=== PATIENT | female | born 1970 | race Two or more races ===

== ENCOUNTER 2018-09-29 10:10 | Emergency (ER) | payer MEDICAID ==
[~2018-09-29] VITALS: Ht 142.2 cm; Wt 42.6 kg
--- NOTE | 2018-09-29 10:24 | NUR ---
ED Nurse Note: PT WALKED IN TO ER TODAY FROM HOME. AOX4. PT C/O UPPER ABDOMINAL PAIN, 7/10, NAUSEA, AND MULTIPLE EPISODES OF VOMITING AND DIARRHEA X 3 DAYS AGO. ABDOMEN NONDISTENDED AND NONTENDER TO PALPATION. ACTIVE BOWEL SOUNDS IN ALL QUADRANTS.
[2018-09-29 10:30] VITALS: BP 142/78
[2018-09-29] MEDS ORDERED: Dicyclomine HCl 10mg/5ml oral soln ORAL ONE (10:30)
--- NOTE | 2018-09-29 10:33 | Emergency Room Report ---
History of Present Illness General Chief Complaint: Nausea, Vomiting, and Diarrhea Source: Patient Present Illness HPI Patient is a 47-year-old female presented after increased nausea vomiting and diarrhea.Patient had prior history of type 2 diabetes.She has been having increased crampy abdominal pain as well as watery diarrhea for several days.Patient denies any current vomiting but has some continued nausea.She denies any antibiotic use prior to illness. She states that she had not seen any blood in her stools or emesis. She had a prior but had no recent surgeries. She denied recent travel.Patient denies any dizziness or lightheadedness. Allergies: Coded Allergies: No Known Allergies (Unverified , 09/29/18) Patient History Past Medical History: see triage record Last Menstrual Period: 2014 Now: No Reviewed Nursing Documentation: PMH: Agreed; PSxH: Agreed Nursing Documentation-PMH Past Medical History: No History, Except For Hx Diabetes: Yes Review of Systems All Other Systems: negative except mentioned in HPI Physical Exam Vital Signs Date Time Temp Pulse Resp B/P (MAP) Pulse Ox O2 Delivery O2 Flow Rate FiO2 09/29/18 10:15 98.1 91 20 98 Room Air General Appearance: well appearing, no apparent distress, alert, GCS 15, non- toxic Head: normocephalic, atraumatic ENT: hearing grossly normal, normal voice Neck: full range of motion, supple Respiratory: lungs clear, normal breath sounds, no respiratory distress, speaking full sentences Cardiovascular #1: normal inspection, no edema Gastrointestinal: normal inspection, normal bowel sounds, non tender, soft, no mass Musculoskeletal: no calf tenderness Neurologic: normal inspection, alert, oriented x3, responsive, business services tech III-XII nml as tested, normal gait Psychiatric: normal inspection, mood/affect normal Skin: normal inspection, normal color, no rash Medical Decision Making Diagnostic Impression: Primary Impression: Viral gastroenteritis ER Course Patient presented for vomiting and diarrhea. Differential diagnosis include was not limited to viral gastroenteritis, bowel obstruction, dysentery, GI bleeding among others. Patient has a benign exam and does not appear to require any further imaging or laboratory testing at this time. Patient appears to be well-hydrated. She was given oral antiemetic as well as medications for discomfort. Patient did not have any focal tenderness and was ambulatory with a normal gait.Patient does not appear to be dehydrated. She was advised oral rehydration. She is advised not to prepare food for other people. She was given instructions on return precautions. Patient appears to be stable for discharge. Last Vital Signs Date Time Temp Pulse Resp B/P (MAP) Pulse Ox O2 Delivery O2 Flow Rate FiO2 09/29/18 10:15 98.1 91 20 98 Room Air Status: improved Disposition: HOME, SELF-CARE Condition: Stable Scripts Loperamide HCl (Loperamide) 2 Mg Capsule 2 MG ORAL Q4H, #20 CAP 0 Refills Prov: Rosalio Huynh MD 09/29/18 Dicyclomine Hcl* (DICYCLOMINE HCL*) 10 Mg Capsule 10 MG ORAL QID, #20 CAP Prov: Rosalio Huynh MD 09/29/18 Ondansetron (Zofran) 4 Mg Tablet 4 MG ORAL Q6H PRN for Nausea & Vomiting, #15 TAB 0 Refills Prov: Rosalio Huynh MD 09/29/18 Rosalio Huynh MD September 29, 2018 10:33
[2018-09-29] MEDS ORDERED: ZOFRAN4 MG ORAL (10:35)
[2018-09-29] MEDS ORDERED: DICYCLOMINE HCL10 MG ORAL (10:35)
[2018-09-29] MEDS ORDERED: IMODIUM2 MG ORAL (10:35)
[2018-09-29 10:42] LABS: APPEARANCE,URINE CLEAR; BILIRUBIN, URINE NEGATIVE (NEGATIVE); COLOR,URINE PALE YELLOW; GLUCOSE, URINE (UA) NEGATIVE (NEGATIVE); KETONES,URINE NEGATIVE (NEGATIVE); LEUKOCYTE ESTERASE ,URINE 1+ (NEGATIVE); NITRITE,URINE NEGATIVE (NEGATIVE); PH,URINE 5 (4.5-8.0); PROTEIN,URINE NEGATIVE (NEGATIVE); UROBILINOGEN,URINE NORMAL MG/DL (0.0-1.0)
[2018-09-29] MEDS ORDERED: Loperamide 2mg cap ORAL ONE (11:00)
--- NOTE | 2018-09-29 11:30 | NUR ---
ED Nurse Note: PT SITTING PEACEFULLY IN BED IN NAD. AOX4. PRESCRIPTIONS AND DISCHARGE PAPERWORK EXPLAINED TO PT. PT VERBALIZES UNDERSTANDING AND ALL QUESTIONS ANSWERED. PRESCRIPTIONS AND DISCHARGE PAPERWORK GIVEN TO PT AND ID WRISTBAND REMOVED. PT WALKED OUT OF ER WITH STEADY GAIT AND ALL BELONGINGS.
[2018-09-29 11:33] VITALS: BP 138/82
== END 2018-09-29 11:30 | disposition home or self-care (01) ==
LOC: EMR 10:55
DX: K52.9 Noninfective gastroenteritis and colitis, unspecified (principal); E11.9 Type 2 diabetes mellitus without complications
CPT/HCPCS: 81003; 81025; 99283

== ENCOUNTER 2019-01-23 20:00 | Emergency (ER) | payer MEDICAID ==
[~2019-01-23] VITALS: Ht 142.2 cm; Wt 40.8 kg
[~2019-01-23 20:00] MED LIST: DICYCLOMINE HCL10 MG ORAL; IMODIUM2 MG ORAL; ZOFRAN4 MG ORAL
[2019-01-23 20:26] VITALS: BP 129/72
--- NOTE | 2019-01-23 20:31 | Emergency Room Report ---
History of Present Illness General Chief Complaint: Vaginal Source: Patient Present Illness HPI 48 YO Female presents to the ED and reports vaginal itching off and on x 7 months. has been trying OTC creams and washes and she feels the skin is very irritated now. Denies suspicion for STI. Denies N/V/F/C. She reports 7/10 in severity burning pain. Pt. reports initially having some whitish d/c. Pt. Denies recent unprotected intercourse. Pt. reports severe itching with no relief from OTC and natural remedies. Pt. reports her doctor recommended her to use an OTC wash and unknown cream. Denies external lesions or bumps. Denies swollen tender lymph nodes. Denies dysuria unless urine gets on the irritated area. Denies urinary frequency or urgency. Allergies: Coded Allergies: No Known Allergies (Unverified , 09/29/18) Patient History Past Medical History: see triage record Past Surgical History: none Pertinent Family History: none Last Menstrual Period: 2015 Now: No Reviewed Nursing Documentation: PMH: Agreed; PSxH: Agreed Nursing Documentation-PMH Past Medical History: No History, Except For Hx Diabetes: Yes Review of Systems All Other Systems: negative except mentioned in HPI Physical Exam Vital Signs Date Time Temp Pulse Resp B/P (MAP) Pulse Ox O2 Delivery O2 Flow Rate FiO2 01/23/19 20:09 98.1 79 18 129/72 (91) 98 Room Air Sp02 EP Interpretation: reviewed, normal General Appearance: no apparent distress, alert, GCS 15, non-toxic Head: normocephalic, atraumatic Eyes: bilateral eye normal inspection, bilateral eye PERRL ENT: hearing grossly normal, normal voice Neck: full range of motion Respiratory: lungs clear, normal breath sounds, speaking full sentences Cardiovascular #1: regular rate, rhythm Gastrointestinal: normal bowel sounds, non tender, soft, non-distended, no guarding Genitourinary: normal inspection, no CVA tenderness, other - Pt. with very swollen and macerated appearing external labia. some thick white d/c noted. no blisters, vesicles, LAD, no ulcers. excoriations noted. Musculoskeletal: back normal, gait/station normal, normal range of motion, non- tender Neurologic: alert, oriented x3, responsive, motor strength/tone normal, sensory intact, normal gait, speech normal, grossly normal Psychiatric: judgement/insight normal Skin: rash - Pt. with very swollen and macerated appearing external labia. some thick white d/c noted. no blisters, vesicles, LAD, no ulcers. excoriations noted. Lymphatic: no adenopathy Medical Decision Making PA Attestation Dr. Patel is my supervising Physician whom patient management has been discussed with. Diagnostic Impression: Primary Impression: Vaginitis and vulvovaginitis ER Course 48 YO Female presents to the ED and reports vaginal itching off and on x 7 months. has been trying OTC creams and washes and she feels the skin is very irritated now. Denies suspicion for STI. Denies N/V/F/C. She reports 7/10 in severity burning pain. Pt. reports initially having some whitish d/c. Pt. Denies recent unprotected intercourse. Pt. reports severe itching with no relief from OTC and natural remedies. Pt. reports her doctor recommended her to use an OTC wash and unknown cream. Denies external lesions or bumps. Denies swollen tender lymph nodes. Denies dysuria unless urine gets on the irritated area. Denies urinary frequency or urgency. Ddx considered but are not limited to UTi , Pyelo, STI, Stone, Cystitis, vaginal laceration, vaginitis. Vital signs: are WNL, pt. is afebrile H& PE are most consistent with: Vaginitis -- most likely could have been atrophic in etiology however after multitude of products and different feminine washes suspect yeast or abnormal increase in vaginal elizabet. ORDERS: none, dx'd clinically ED INTERVENTIONS: -Diflucan PO DISCHARGE: At this time pt. is stable for d/c to home. Will provide printed patient care instructions, and any necessary prescriptions. Care plan and follow up instructions have been discussed with the patient prior to discharge. discussed with the patient prior to discharge. Last Vital Signs Date Time Temp Pulse Resp B/P (MAP) Pulse Ox O2 Delivery O2 Flow Rate FiO2 01/23/19 20:09 98.1 79 18 129/72 (91) 98 Room Air Disposition: HOME, SELF-CARE Condition: Stable Scripts Clotrimazole (Gyne-Lotrimin) 21 Gm Cream.appl 1 APPLIC VG DAILY, #21 GM Prov: Jaqueline Robbins 01/23/19 Metronidazole* (FLAGYL*) 500 Mg Tablet 500 MG ORAL BID for 7 Days, #14 TAB Prov: Jaqueline Robbins 01/23/19 Fluconazole (FLUCONAZOLE) 100 Mg Tablet 100 MG ORAL DAILY, #4 TAB 0 Refills Prov: Jaqueline Robbins 01/23/19 Patient Instructions: Vaginitis Additional Instructions: Take medications as directed. Follow up with a POLICE CLERK within 3-5 days, even if your symptoms have resolved. Return sooner to ED if new symptoms occur, or current symptoms become worse. - Please note that this Emergency Department Report was dictated using [employer] counselor technology software, occasionally this can lead to erroneous entry secondary to interpretation by the dictation equipment. Jaqueline Robbins Jan 23, 2019 20:31
[2019-01-23] MEDS ORDERED: METRONIDAZOLE500 MG ORAL (20:33)
[2019-01-23] MEDS ORDERED: GYNE-LOTRIMIN21 GM VG (20:33)
[2019-01-23] MEDS ORDERED: FLUCONAZOLE100 MG ORAL (20:33)
--- NOTE | 2019-01-23 20:36 | NUR ---
ED Nurse Note: Pt walked in due to vaginal itching and red discharge x 7 months. VSS.
--- NOTE | 2019-01-23 20:40 | NUR ---
ER DISCHARGE NOTE: Patient is cleared to be discharged per ERMD, pt is aox4, on room air, with stable vital signs. pt was given dc and prescription instructions, pt was able to verbalize understanding, pt id band removed. pt is able to ambulate with steady gait. pt took all belongings.
== END 2019-01-23 20:40 | disposition home or self-care (01) ==
LOC: EMR 20:28
DX: N76.0 Acute vaginitis (principal); E11.9 Type 2 diabetes mellitus without complications
CPT/HCPCS: 99282

== ENCOUNTER 2019-04-05 21:37 | Emergency (ER) | payer MEDICAID ==
[~2019-04-05] VITALS: Ht 142.2 cm; Wt 40.8 kg
[~2019-04-05 21:37] MED LIST changes: +FLUCONAZOLE100 MG ORAL; +GYNE-LOTRIMIN21 GM VG; +METRONIDAZOLE500 MG ORAL
[2019-04-05 21:53] VITALS: BP 130/78
[2019-04-05] MEDS ORDERED: METFORMIN HCL500 M1 ORAL (21:53)
--- NOTE | 2019-04-05 22:41 | Emergency Room Report ---
History of Present Illness General Chief Complaint: Nausea, Vomiting, and Diarrhea Source: Patient Present Illness HPI This is a 48-year-old female with h/o DM2. She presents with complaint abdominal pain with nausea and vomiting. Onset this morning. She says she did not feel well when she woke up. She had multiple episode of vomiting. Unable to keep anything down. Now with epigastric pain. No diarrhea but lots of loose stool yesterday. No sick contact. Vomiting is nonbloody nonbilious. No blood in the bowel movement. Better with rest. Worse with exertion. Allergies: Coded Allergies: No Known Allergies (Unverified , 09/29/18) Patient History Past Medical History: see triage record, old chart reviewed, DM Past Surgical History: none Pertinent Family History: none Social History: Denies: smoking Last Menstrual Period: na Now: No Immunizations: other Reviewed Nursing Documentation: PMH: Agreed; PSxH: Agreed Nursing Documentation-PMH Past Medical History: No Stated History Hx Diabetes: Yes Review of Systems Eye: Denies: eye pain, blurred vision ENT: Denies: ear pain, nose congestion, throat swelling Respiratory: Denies: cough, shortness of breath Cardiovascular: Denies: chest pain, palpitations Gastrointestinal: Reports: abdominal pain, nausea, vomiting; Denies: diarrhea Musculoskeletal: Denies: back pain, joint pain Skin: Denies: rash Neurological: Denies: headache, numbness Endocrine: Denies: increased thirst, increased urine Hematologic/Lymphatic: Denies: easy bruising All Other Systems: negative except mentioned in HPI Physical Exam Vital Signs Date Time Temp Pulse Resp B/P (MAP) Pulse Ox O2 Delivery O2 Flow Rate FiO2 04/05/19 21:48 98.8 116 16 130/78 (95) 96 Room Air Vitals with tachycardia Sp02 EP Interpretation: reviewed, normal General Appearance: well appearing, no apparent distress, alert Head: normocephalic, atraumatic Eyes: bilateral eye PERRL, bilateral eye EOMI ENT: hearing grossly normal, normal pharynx Neck: full range of motion, supple, no meningismus Respiratory: chest non-tender, lungs clear, normal breath sounds Cardiovascular #1: regular rate, rhythm, no murmur Gastrointestinal: non tender, no mass, no organomegaly, no bruit, non-distended , decreased bowel sounds Musculoskeletal: back normal, gait/station normal, normal range of motion Psychiatric: mood/affect normal Medical Decision Making Diagnostic Impression: Primary Impression: Nausea and vomiting in adult Additional Impression: Dehydration ER Course Patient with nausea and vomiting. Most likely an early gastroenteritis. She is dehydrated with 4+ ketones. No evidence of an acute abdomen. No obstruction. Epigastric pain is most likely gastritis from vomiting. No evidence of any obstruction. No evidence of any bacterial infection. She felt better now. Tolerating p.o. Will discharge home. Last Vital Signs Date Time Temp Pulse Resp B/P (MAP) Pulse Ox O2 Delivery O2 Flow Rate FiO2 04/05/19 21:48 98.8 116 16 130/78 (95) 96 Room Air Status: improved Disposition: HOME, SELF-CARE Condition: Stable Scripts Ondansetron* (ZOFRAN*) 4 Mg Tablet 4 MG ORAL Q6H PRN for Nausea & Vomiting, #10 TAB Prov: David Mendoza MD 04/06/19 Referrals: [facility] (PCP) Additional Instructions: Increase fluids. Follow-up with your doctor in 2 3 days for recheck if not better. Return if worse. David Mendoza MD Apr 05, 2019 22:41
[2019-04-05] MEDS ORDERED: Mylanta II UD 30ml ORAL ONE (22:45)
[2019-04-05] MEDS ORDERED: Lidocaine 2% Visc 15ml soln ORAL ONE (22:45)
[2019-04-05 23:00] LABS: HEMATOCRIT 36.1 % (37.0-47.0); HEMOGLOBIN 12.2 G/DL (12.0-16.0); MEAN CORPUSCULAR VOLUME 79 FL (80-99); PLATELET COUNT 369 K/UL (150-450); RED BLOOD COUNT 4.54 M/UL (4.20-5.40); RED CELL DISTRIBUTION WIDTH 11.2 % (11.6-14.8); WHITE BLOOD COUNT 12.5 K/UL (4.8-10.8)
[2019-04-05 23:06] LABS: ANION GAP 12 mmol/L (5-15); BLOOD UREA NITROGEN 25 mg/dL (7-18); CALCIUM 9.1 MG/DL (8.5-10.1); CARBON DIOXIDE 27 MMOL/L (21-32); CHLORIDE 101 MMOL/L (98-107); CREATININE 0.5 MG/DL (0.55-1.30); POTASSIUM 3.9 MMOL/L (3.5-5.1); SODIUM 140 MMOL/L (136-145)
[2019-04-05 23:11] LABS: ALANINE AMINOTRANSFERASE 20 U/L (12-78); ALBUMIN 4.1 G/DL (3.4-5.0); ALKALINE PHOSPHATASE 95 U/L (46-116); APPEARANCE,URINE CLEAR; ASPARTATE AMINO TRANSFERASE 15 U/L (15-37); BILIRUBIN, URINE NEGATIVE (NEGATIVE); BILIRUBIN,TOTAL 0.4 MG/DL (0.2-1.0); COLOR,URINE PALE YELLOW; GLUCOSE, URINE (UA) 1+ (NEGATIVE); KETONES,URINE 4+ (NEGATIVE); LEUKOCYTE ESTERASE ,URINE NEGATIVE (NEGATIVE); NITRITE,URINE NEGATIVE (NEGATIVE); PH,URINE 6.5 (4.5-8.0); UROBILINOGEN,URINE NORMAL MG/DL (0.0-1.0)
[2019-04-05 23:15] LABS: PROTEIN,URINE NEGATIVE (NEGATIVE)
[2019-04-06] MEDS ORDERED: ZOFRAN4 M3 ORAL (00:01)
[2019-04-06 00:32] VITALS: BP 125/55
== END 2019-04-06 00:32 | disposition home or self-care (01) ==
LOC: EMR 21:55
DX: R11.2 Nausea with vomiting, unspecified (principal); E86.0 Dehydration; R10.9 Unspecified abdominal pain; E11.9 Type 2 diabetes mellitus without complications
CPT/HCPCS: 36415; 80053; 81003; 81025; 83690; 85025; 96361; 96374; 96375; J2405; S0028; Z7502; 99284

== ENCOUNTER 2020-04-15 15:42 | Emergency (ER) | payer MEDICAID ==
[~2020-04-15] VITALS: Ht 142.2 cm; Wt 40.8 kg
[~2020-04-15 15:42] MED LIST changes: +METFORMIN HCL500 M1 ORAL; +ZOFRAN4 M3 ORAL
[2020-04-15] MEDS ORDERED: ATORVASTATIN CA20 MG ORAL (15:58)
[2020-04-15] MEDS ORDERED: GLIPIZIDE5 MG ORAL (15:58)
[2020-04-15 16:11] VITALS: BP 147/78
--- NOTE | 2020-04-15 16:32 | Emergency Room Report ---
History of Present Illness General Chief Complaint: Skin Rash/Abscess Source: Patient Present Illness HPI 49 YO female with hx of DM2 presents to the ED c/o 10/26 in severity localized itchy rash to the right ring finger x 1 month. Pt. reports hx of similar symptoms several years ago which was dx'd as fungal infection and treated with one dose oral antifungal and topical creams. Pt. denies hx of eczema. She did report trying many at home remedies without relief. Pt. reports she recently also applied a small amount of bleach to it. She states the rash has not spread. Pt. denies fevers, chills or swollen tender lymph nodes. Denies lesions/rashes elsewhere on the body. Denies new medications or body washes or creams. Denies swelling of the lips, tongue , throat or airway. Denies wheezing, or shortness of breath. Denies recent travel, recent illness or ill contacts. denies blisters, oral lesions, or sloughing of the skin Allergies: Coded Allergies: No Known Allergies (Unverified , 09/29/18) COVID-19 Screening Contact w/high risk pt: No Experienced COVID-19 symptoms?: No COVID-19 Testing performed MANAGER GOLF: No Patient History Past Medical History: see triage record, DM Past Surgical History: none Pertinent Family History: none Last Menstrual Period: na Now: No Immunizations: UTD Reviewed Nursing Documentation: PMH: Agreed; PSxH: Agreed Nursing Documentation-PMH Past Medical History: No History, Except For Hx Diabetes: Yes Review of Systems All Other Systems: negative except mentioned in HPI Physical Exam Vital Signs Date Time Temp Pulse Resp B/P (MAP) Pulse Ox O2 Delivery O2 Flow Rate FiO2 04/15/20 15:51 97.0 85 16 151/80 (103) 95 Room Air Sp02 EP Interpretation: reviewed, normal General Appearance: no apparent distress, alert, GCS 15, non-toxic Head: normocephalic, atraumatic Eyes: bilateral eye normal inspection, bilateral eye PERRL ENT: hearing grossly normal, normal voice, other - no swelling of the lips or tongue Neck: full range of motion, other - no stridor Respiratory: chest non-tender, lungs clear, normal breath sounds, no respiratory distress, no accessory muscle use, no wheezing, speaking full sentences Cardiovascular #1: regular rate, rhythm, no edema, normal capillary refill Musculoskeletal: normal range of motion, gait/station normal, non-tender Neurologic: alert, motor strength/tone normal, oriented x3, sensory intact, responsive, speech normal Psychiatric: judgement/insight normal Skin: rash - 1cm area of localized dermatitis to the medial aspect of the right ring finger, no blisters or vesicles. No sloughing of the skin. dryness and some erythematous border noted. no crusting or discharge. Lymphatic: no adenopathy Medical Decision Making PA Attestation Dr. Duke Is my supervising Physician whom patient management has been discussed with. Diagnostic Impression: Primary Impression: Rash and other nonspecific skin eruption ER Course 49 YO female with hx of DM2 presents to the ED c/o 10/26 in severity localized itchy rash to the right ring finger x 1 month. Pt. reports hx of similar symptoms several years ago which was dx'd as fungal infection and treated with one dose oral antifungal and topical creams. Pt. denies hx of eczema. She did report trying many at home remedies without relief. Pt. reports she recently also applied a small amount of bleach to it. She states the rash has not spread. Pt. denies fevers, chills or swollen tender lymph nodes. Denies lesions/rashes elsewhere on the body. Denies new medications or body washes or creams. Denies swelling of the lips, tongue , throat or airway. Denies wheezing, or shortness of breath. Denies recent travel, recent illness or ill contacts. denies blisters, oral lesions, or sloughing of the skin. Ddx considered but are not limited to cellulitis, scabies, shingles, varicella, dermatitis, urticaria, eczema, tinea, viral exanthem, SJS Vital signs: are WNL, pt. is afebrile H&PE are most consistent with 1cm area of localized dermatitis to the medial aspect of the right ring finger, no blisters or vesicles. No sloughing of the skin. dryness and some erythematous border noted. no crusting or discharge. ORDERS: none required at this time, the diagnosis is clinical ED INTERVENTIONS: None required at this time. DISCHARGE: At this time pt. is stable for d/c to home. Will provide printed patient care instructions, and any necessary prescriptions. Care plan and follow up instructions have been discussed with the patient prior to discharge. Last Vital Signs Date Time Temp Pulse Resp B/P (MAP) Pulse Ox O2 Delivery O2 Flow Rate FiO2 04/15/20 16:11 97.0 82 18 147/78 98 Room Air Disposition: HOME, SELF-CARE Condition: Stable Referrals: [facility] (PCP) Patient Instructions: Hand Dermatitis, Mood-ff-Wafh Additional Instructions: Take medications as directed. Follow up with a Primary Care Provider in 3-5 days for DERMATOLOGY REFERRAL, even if your symptoms have resolved. --Please review list of primary care clinics, if you do not already have a primary care provider Return sooner to ED if new symptoms occur, or current symptoms become worse. - Please note that this Emergency Department Report was dictated using [employer] attendant technology software, occasionally this can lead to erroneous entry secondary to interpretation by the dictation equipment. Jaqueline Robbins Apr 15, 2020 16:32
[2020-04-15] MEDS ORDERED: FLUCONAZOLE100 MG ORAL (16:33)
[2020-04-15] MEDS ORDERED: HYDROCORT 2.5%-30 GM TP ×2 (16:33)
[2020-04-15 16:40] VITALS: BP 138/76
[2020-04-15] MEDS ORDERED: CLOTRIMAZOLE-BE15 GM TP (17:35)
== END 2020-04-15 16:42 | disposition home or self-care (01) ==
LOC: EMR 16:03
DX: R21 Rash and other nonspecific skin eruption (principal); E11.9 Type 2 diabetes mellitus without complications
CPT/HCPCS: 99281

== ENCOUNTER 2020-07-20 12:49 | Emergency (ER) | payer MEDICAID ==
[~2020-07-20] VITALS: Ht 152.4 cm; Wt 58.1 kg
[~2020-07-20 12:49] MED LIST changes: +ATORVASTATIN CA20 MG ORAL; +CLOTRIMAZOLE-BE15 GM TP; +GLIPIZIDE5 MG ORAL; +HYDROCORT 2.5%-30 GM TP
[2020-07-20 14:15] VITALS: BP 139/90
--- NOTE | 2020-07-20 14:43 | Emergency Room Report ---
History of Present Illness General Chief Complaint: Earache Source: Patient Present Illness HPI This patient states that 2 days ago she suddenly developed right-sided hearing loss. She states she does have occasional "buzzing" sound in her ear. She has no ear pain. She denies headache or neck pain. She denies recent illness. She denies cough or congestion. She denies fever or chills. She admits that she did have some "mild allergy" symptoms is prior to the onset of the symptoms but denies any further allergy symptoms such as sneezing, watery eyes or rhinorrhea. She is otherwise completely asymptomatic. She denies headache. She states his symptoms were sudden. She denies blurry vision. She denies chest pain or shortness of breath. She denies use of aspirin, supplements or any type of new medications. She only takes Metformin and a statin medication. She is on these medications chronically and for years. She has no other complaints. Allergies: Coded Allergies: No Known Allergies (Unverified , 09/29/18) COVID-19 Screening Contact w/high risk pt: No Experienced COVID-19 symptoms?: No COVID-19 Testing performed BIOLOGICAL LAB TECHNICIAN: No Patient History Past Medical History: see triage record, DM, other - HLP Social History: Denies: smoking, alcohol use, drug use Reviewed Nursing Documentation: PMH: Agreed; PSxH: Agreed Nursing Documentation-PMH Hx Diabetes: Yes Review of Systems All Other Systems: negative except mentioned in HPI Physical Exam Vital Signs Date Time Temp Pulse Resp B/P (MAP) Pulse Ox O2 Delivery O2 Flow Rate FiO2 07/20/20 14:15 98.1 78 18 139/90 (106) 98 Room Air Sp02 EP Interpretation: reviewed, normal General Appearance: no apparent distress, alert, GCS 15, non-toxic Head: normocephalic, atraumatic Eyes: bilateral eye normal inspection, bilateral eye PERRL, bilateral eye fl uoroscene uptake ENT: normal ENT inspection, EOM grossly intact, normal pharynx, no angioedema, normal voice, TMs + canals normal, moist mucus membranes Neck: normal inspection, full range of motion, supple, thyroid normal, supple/symm/no masses Respiratory: no respiratory distress, no retraction, no accessory muscle use, speaking full sentences Rectal: deferred Musculoskeletal: normal inspection, back normal, normal range of motion, gait/station normal, non-tender Neurologic: alert, motor strength/tone normal, oriented x3, sensory intact, responsive, speech normal Psychiatric: judgement/insight normal, memory normal, mood/affect normal, no suicidal/homicidal ideation Skin: no rash, normal color Medical Decision Making Diagnostic Impression: Primary Impression: Sudden-onset sensorineural hearing loss ER Course This patient has sudden onset sensorineural hearing loss. The differential for this consideration is extensive: This includes viral laryngitis, Mnire's, cochlear rupture, cochlear infarct, schwannoma and the most likely and most common is idiopathic. There are no findings on history or exam that would make me concerned for meningitis or bacterial etiology. Patient is low risk for cochlear infarct or rupture and has no pain so this is unlikely. There is a possibility of a viral etiology. I have a low suspicion for tumor, although, this would need to be further addressed as this patient will likely need an MRI to rule out an acoustic neuroma. I will start the patient on high-dose steroids orally to bridge her to see an clearing distribution clerk. I educated the patient that she would need to see an ear nose and throat physician within the next 24 hours. The patient states that she will contact her primary care physician today after she leaves the emergency department and see an ear nose and throat physician tomorrow. The patient could undergo intratympanic steroid injection as an adjunct treatment for this and hyperbaric oxygen treatment is also a consideration for future treatment. The patient was educated that if she does not see an clearing distribution clerk she could have permanent hearing loss and even at this point may have partial to complete hearing loss regardless of treatment as this condition is difficult to predict. The patient was educated on the urgency of her to see the specialist as the steroids that I will prescribe are not sufficient. The patient indicated understanding and intention to do so. This patient was evaluated in the context of the global COVID-19 pandemic, which necessitated consideration that the patient might be at risk for infection with the [id number] virus that causes COVID-19. Institutional protocols and algorithms that pertain to the evaluation of patients at risk for COVID-19 and the state of rapid change based on information released by multiple regulatory bodies including the CDC and federal and state organizations. These policies and algorithms were followed during the patient's care in the ED. Last Vital Signs Date Time Temp Pulse Resp B/P (MAP) Pulse Ox O2 Delivery O2 Flow Rate FiO2 07/20/20 14:15 98.1 78 18 139/90 (106) 98 Room Air Disposition: HOME, SELF-CARE Condition: Improved Referrals: [facility] (PCP) Joceline Vogel DO Jul 20, 2020 14:43
[2020-07-20] MEDS ORDERED: PREDNISONE20 MG ORAL (14:56)
== END 2020-07-20 15:05 | disposition home or self-care (01) ==
LOC: EMR 14:32
DX: H91.21 Sudden idiopathic hearing loss, right ear (principal); E11.9 Type 2 diabetes mellitus without complications; E78.5 Hyperlipidemia, unspecified; Z79.899 Other long term (current) drug therapy; Z79.84 Long term (current) use of oral hypoglycemic drugs
CPT/HCPCS: J7512; Z7502; 99282